=== PATIENT | male | born 1985 | race Hispanic/Latino ===

== ENCOUNTER 2019-03-16 17:47 | Emergency (ER) | payer OTHER ==
[2019-03-16] MEDS ORDERED: ASPIRIN 325 MG TABLET ONE (18:23)
[2019-03-16 18:43] LABS: BASOPHILS % (AUTO) 0.5 % (0.0-5.0); EOSINOPHILS % (AUTO) 1.9 % (0.0-8.0); HEMATOCRIT 42.4 % (42-54); LYMPHOCYTES % (AUTO) 36.1 % (21.0-51.0); MEAN CORPUSCULAR HEMOGLOBIN 30.8 pg (27.0-33.0); MEAN CORPUSCULAR HGB CONC 34.5 g/dL (32.0-36.0); MEAN CORPUSCULAR VOLUME 89.3 fL (79-99); NEUTROPHILS % (AUTO) 55.5 % (40.0-77.0); PLATELET COUNT (AUTO) 288 K/uL (130-400); RED BLOOD CELL COUNT(AUTO) 4.75 MIL/uL (4.50-6.20); RED CELL DISTRIBUTION WIDTH 13.1 % (11.0-15.5); WHITE BLOOD COUNT (AUTO) 6.7 K/uL (4.8-10.8)
[2019-03-16 18:54] LABS: CREATININE 1.1 mg/dL (0.5-1.5); POTASSIUM 3.5 mmol/L (3.5-5.1)
[2019-03-16 18:55] LABS: INR 0.98 (0.85-1.15); PARTIAL THROMBOPLASTIN TIME 29.6 SEC (26.3-35.5); PROTHROMBIN TIME 10.3 SEC (9.6-11.6)
[2019-03-16 19:06] LABS: ALBUMIN 4.2 g/dL (3.5-5.0); BILIRUBIN,TOTAL 0.3 mg/dL (0.2-1.0); TOTAL PROTEIN, SERUM 7.7 g/dL (6.0-8.3)
[2019-03-16 19:10] LABS: B-TYPE NATRIURETIC PEPTIDE < 5 pg/mL (0-100)
[2019-03-16] MEDS ORDERED: HYDROXYZINE HCL 25 MG TABLET ONE (19:23)
== END 2019-03-16 21:08 | disposition home or self-care (01) ==
LOC: EDH 17:47
DX: F41.1 Generalized anxiety disorder (principal); R07.89 Other chest pain; I10 Essential (primary) hypertension
CPT/HCPCS: 36415; 71046; 80053; 82550; 83874; 83880; 84484; 85025; 85610; 85730; 93005

== ENCOUNTER 2019-08-14 20:25 | Emergency (ER) | payer OTHER | END 2019-08-14 21:07 | disposition home or self-care (01) | LOC: EDH 20:25 | DX: J06.9 Acute upper respiratory infection, unspecified (principal); I10 Essential (primary) hypertension | CPT/HCPCS: 99281 ==

== ENCOUNTER 2022-04-05 13:33 | Emergency (ER) | payer OTHER ==
[~2022-04-05] VITALS: Ht 175.3 cm; Wt 129.3 kg
[2022-04-05 13:38] VITALS: BP 131/78
[2022-04-05] MEDS ORDERED: WITC1MED20 TP (16:05)
[2022-04-05] MEDS ORDERED: HYDR30CR79 RC (16:05)
[2022-04-05] MEDS ORDERED: IBUP-2070 PO (16:05)
[2022-04-05] MEDS ORDERED: DOCU-116 PO (16:05)
[2022-04-05] MEDS ORDERED: HYDR25SU38 RC (16:05)
== END 2022-04-05 16:11 | disposition home or self-care (01) ==
LOC: EDH 13:33
DX: K64.4 Residual hemorrhoidal skin tags (principal); I10 Essential (primary) hypertension; Z79.1 Long term (current) use of non-steroidal anti-inflammatories (NSAID); Z79.899 Other long term (current) drug therapy; Z87.19 Personal history of other diseases of the digestive system

== ENCOUNTER 2023-05-16 00:18 | Emergency (ER) | payer OTHER ==
[~2023-05-16] VITALS: Ht 175.3 cm; Wt 137.1 kg
[~2023-05-16 00:18] MED LIST: DOCU-116 PO; HYDR25SU38 RC; HYDR30CR79 RC; IBUP-2070 PO; WITC1MED20 TP
[2023-05-16] MEDS ORDERED: CYCL-309 PO (00:45)
[2023-05-16] MEDS ORDERED: IBUP-1493 PO (00:45)
[2023-05-16 00:51] VITALS: BP 136/60
== END 2023-05-16 00:53 | disposition home or self-care (01) ==
LOC: EDH 00:18
DX: M75.51 Bursitis of right shoulder (principal); M54.12 Radiculopathy, cervical region; I10 Essential (primary) hypertension; Z79.899 Other long term (current) drug therapy

== ENCOUNTER 2024-12-16 17:02 | Emergency (ER) | payer BC ==
[~2024-12-16] VITALS: Ht 175.3 cm; Wt 133.8 kg
[~2024-12-16 17:02] MED LIST changes: +CYCL-309 PO; +IBUP-1493 PO
[2024-12-16 19:02] VITALS: BP 148/96; PULSE 78; RESP 17; TEMP 98.8; O2SAT 96
--- NOTE | 2024-12-16 19:08 | ERN ---
ED Note History of Present Illness Stated Complaint: LEFT ARM PAIN Chief Complaint: Cellulitis Time Seen by MD: 17:40 Time Seen by Midlevel: 17:45 Dictation: 38-year-old male coming in for evaluation of left arm pain and swelling after donating plasma. Patient states this happened about 1:00 a.m.. Denies any shortness a breath, chest pain or chest discomfort. Allergies: Coded Allergies: No Known Allergies (Unverified Allergy, Unknown, 04/05/22) Home Meds Active Scripts Ibuprofen (Motrin/Advil) 800 Mg Tab, 800 MG PO TID, #30 TAB Prov:KATHIE GARCIA MD 05/16/23 Cyclobenzaprine HCl (Cyclobenzaprine HCl) 10 Mg Tablet, 10 MG PO TID, #60 TAB Prov:KATHIE GARCIA MD 05/16/23 Ibuprofen (Ibuprofen) 600 Mg Tablet, 600 MG PO Q6H PRN for PAIN, #15 TAB Prov:FITTING,PAYAL [facility] 04/05/22 Docusate Sodium (Colace) 100 Mg Capsule, 100 MG PO DAILY, #15 CAP Prov:FITTING,PAYAL [facility] 04/05/22 Witch Veronica (Hemorrhoidal Pads) 1 Each Med..pad, 1 EACH TP TID, #15 EA Prov:FITTING,PAYAL [facility] 04/05/22 Hydrocortisone (Anusol-Hc) 30 Gm Cream..g., 30 GM RC BID, #1 TUBE Prov:FITTING,SAMU[facility] 04/05/22 Hydrocortisone Acetate (Anusol-Hc) 25 Mg Supp.rect, 25 MG RC TID, #15 EA Prov:FITTING,PAYAL [facility] 04/05/22 Past Medical History Past Medical History: Hypertension Surgical History: None Family History: Negative Social History: Negative, Lives with family Review of System Dictation CONSTITUTIONAL: Negative except for HPI HEAD/FACE: Negative except for HPI EENT: Negative except for HPI RESPIRATORY: Negative except for HPI GASTROINTESTINAL/ABDOMINAL: Negative except for HPI GENITOURINARY: Negative except for HPI MUSCULOSKELETAL: Negative except for HPI INTEGUMENTARY: Negative except for HPI NEUROLOGICAL/PSYCH: Negative except for HPI HEMATOLOGIC/LYMPHATIC: Negative except for HPI All Systems Negative, Except as noted above. 13 point review of systems assessed and all negative except for above. Initial Vital Sign VS Vital Signs Date Time Temp Pulse Resp B/P (MAP) Pulse Ox O2 Delivery O2 Flow Rate FiO2 12/16/24 17:35 97.9 80 16 157/93 98 0 12/16/24 19:02 Room Air* 21 Physical Exam Dictation PHYSICAL EXAM: GENERAL: alert,, awake oriented x 3 HEENT: EOMI, Sclera non icteric, moist mucosa NECK: Supple, no JVD, trachea midline LUNGS: Clear breath sounds bilaterally. No wheezes HEART: Regular rate and rhythm. Normal S1 and S2, without murmurs ABD: Abdomen soft, nontender. Bowel sounds present EXT: Localized swelling to the left anterior forearm, no surrounding erythema, induration, or drainable abscess at this time NEURO: Alert and oriented to person, follows commands ED Course ED Course Orders Procedure Category Date Status Time Us Soft Tissue Upper US 12/16/24 Resulted Extremity 18:15 Vital Signs Date Time Temp Pulse Resp B/P (MAP) Pulse Ox O2 Delivery O2 Flow Rate FiO2 12/16/24 19:02 98.8 78 17 148/96 96 Room Air* 0 21 12/16/24 17:35 97.9 80 16 157/[address] [id number] IMAGING REPORT Signed PATIENT: ADELINE ROBERTS MR#: [id number] : 1985 SEX: M AGE: 38 LOCATION: [facility] ORDER 14 STATUS: REG REPORT#: [id number] SERVICE 14 REASON: infliltration ORDERING PHYSICIAN: STEVEN JACOBO NP PROCEDURE: SOFT UP EX - US SOFT TISSUE UPPER EXTREMITY US SOFT TISSUE UPPER EXTREMITY REASON: infliltration COMPARISON: None TECHNIQUE: Ultrasound was performed in the area of interest left forearm. FINDINGS: There is diffuse soft tissue edema. There are no discrete focal fluid collections. There is no evidence of a focal hematoma. IMPRESSION: 1. Diffuse edema, there are no focal fluid collection identified. DICTATED BY: SARABJIT MUNIZ MD DATE: 12/16/241999 ELECTRONICALLY SIGNED BY: SARABJIT MUNIZ MD DATE: 12/16/242002 Medical Decision Making MDM MDM: Differential diagnosis: IV infiltration, cellulitis, abscess, There are no social concerns with this patient. Prescription drug management Prescriptions will include: None Medical management and examination interpretation discussions were had by me with other qualified healthcare professionals as indicated for the patient's care. DX & DISP Disposition: Discharge Departure Impression: Primary Impression: IV infiltration Condition: Stable Additional Instructions: Your ultrasound shows swelling to your left arm most likely related to IV infiltration from when you were donating plasma. Over the next couple of days the fluid in your left forearm she would be ab sorbed by your body. I would advised to not have any blood drawn on that left arm until your left arm heals. Follow up with your primary care doctor in 2-3 days for repeat evaluation. If you develop any new or worsening symptoms please report to the ER for further evaluation. Referrals: MAYURI BAHENA (PCP) Time of Disposition: 20:11 I have reviewed the case, and I agree with, Diagnosis and Plan I performed the substantive portion of the visit. I have reviewed and personally made and approve the management plan that is documented in the note by myself or the MALIA. I acknowledge for responsibility for the patient's management plan. STEVEN JACOBO NP Dec 16, 2024 19:08 MOHAN ROCA Dec 16, 2024 20:14
--- NOTE | 2024-12-16 20:03 | HMCIMG ---
US SOFT TISSUE UPPER EXTREMITY REASON: infliltration COMPARISON: None TECHNIQUE: Ultrasound was performed in the area of interest left forearm. FINDINGS: There is diffuse soft tissue edema. There are no discrete focal fluid collections. There is no evidence of a focal hematoma. IMPRESSION: 1. Diffuse edema, there are no focal fluid collection identified.
== END 2024-12-16 20:19 | disposition home or self-care (01) ==
LOC: EDH 17:02
DX: T80.89XA Other complications following infusion, transfusion and therapeutic injection, initial encounter (principal); I10 Essential (primary) hypertension; Z79.1 Long term (current) use of non-steroidal anti-inflammatories (NSAID); Y65.8 Other specified misadventures during surgical and medical care; Y92.89 Other specified places as the place of occurrence of the external cause
CPT/HCPCS: 76882; 99284